=== PATIENT | male | born 1965 | race Asian ===

== ENCOUNTER → 2018-03-09 | Outpatient (CLI) | payer SELFPAY ==
--- NOTE | 2018-03-09 15:49 | RADIOLOGY REPORT (SQ) ---
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 TECHNIQUE: CT scan of the chest performed using helical scanning technique with dynamic intravenous contrast injection. Images reviewed with lung, soft tissue and bone windows. Reconstructed coronal and sagittal MPR images reviewed. All images stored on PACS. All CT scanners at this facility use dose modulation, iterative reconstruction, and/or weight based d osing when appropriate to reduce radiation dose to as low as reasonably achievable (ALARA). [facility]: Dose Right [facility]: CareDose [facility]: Dose Right [facility]: Teradose 4D [facility]: [employer] CONTRAST TYPE AND DOSE: contrast/concentration: Isovue 350.00 mg/ml; Total Contrast Delivered: 80.0 ml; Total Saline Delivered: 55.0 ml RENAL FUNCTION: Creatinine 0.9 RADIATION DOSE: CT Rad equipment meets quality standard of care and radiation dose reduction techniq ues were employed. CTDIvol: 3.9 mGy. DLP: 161 mGy-cm. . LIMITATIONS: None. FINDINGS: LUNGS AND PLEURA: Calcified granuloma right lung apex axial image 23. No lung nodules wor risome for metastatic disease. No pleural effusion or pneumothorax. HILAR AND MEDIASTINAL STRUCTURES: No identified masses or abnormal nodes. HEART AND VASCULAR STRUCTURES: No aneurysm or dissection. No central pulmonary emboli. No pericardi al effusion. HARDWARE: None in the chest. UPPER ABDOMEN: No significant findings. Limited exam. THYROID AND OTHER SOFT TISSUES: Thyroid unremarkable. No axillary or supraclavicular adenopathy BONES: An 8 x 8 x 8 cm mass is present along the right lateral 10th rib at the junction of rib and co stochondral cartilage, primary leak low-density with irregularly-shaped curvilinear calcification zack trally. This is compatible with diagnosis of chondrosarcoma. This mass bulges into the left upper q uadrant abdomen, and deforms the right lateral liver margin. Consider MRI for followup, to evaluate for direct tumor extension into the liver OTHER: No other significant finding. IMPRESSION: 8 x 8 x 8 cm mass, right lateral 10th rib with intrinsic calcifications compatible with diagnosis of chondrosarcoma. Mass deforms the right lateral liver margin. Consider MRI to evaluate for any signs of direct tumor extension into the liver TECHNICAL DOCUMENTATION: JOB ID: [id number] Quality ID # [id number]: Final reports with documentation of one or more dose reduction techniques (e.g., Au tomated exposure control, adjustment of the mA and/or kV according to patient size, use of iterative reconstruction technique) 2010 [employer]- All Rights Reserved Reading location - IP/workstation name: [email or web address] [id number]
== END ==
LOC: RAD 14:03
PROVIDERS: ATTEND Orthopaedic Surgery
DX: C41.9 Malignant neoplasm of bone and articular cartilage, unspecified (principal); R10.9 Unspecified abdominal pain
CPT/HCPCS: 71260; 82565